=== PATIENT | male | born 1950 | race Two or more races ===

== ENCOUNTER 2020-07-28 08:00 | Day surgery (SDC) | payer OTHER | END 2020-07-28 14:00 | disposition home or self-care (01) | LOC: AMB-ENDOS 08:00 | PROVIDERS: ATTEND Surgery | DX: D12.8 Benign neoplasm of rectum (principal) ==

== ENCOUNTER 2021-04-05 11:39 | Emergency (ER) | payer OTHER ==
[~2021-04-05] VITALS: Ht 165.1 cm; Wt 86.2 kg
[2021-04-05] MEDS ORDERED: LEVOTHYROXINE50 MC1 PO (12:17)
[2021-04-05] MEDS ORDERED: EZALLOR SPRINKL20 MG PO (12:17)
[2021-04-05] MEDS ORDERED: COZAAR100 MG PO (12:17)
[2021-04-05] MEDS ORDERED: AMLODIPINE-OLM1 EAC2 PO (12:17)
[2021-04-05] MEDS ORDERED: CHLORTHALIDONE25 MG PO (12:17)
[2021-04-05] MEDS ORDERED: MECLIZINE HCL25 M1 PO (12:18)
[2021-04-05] MEDS ORDERED: MEDI-MECLIZINE25 MG PO (22:07)
== END 2021-04-05 22:15 | disposition home or self-care (01) ==
LOC: ER 11:39
DX: R42 Dizziness and giddiness (principal); Z72.0 Tobacco use

== ENCOUNTER 2023-08-27 15:19 | Inpatient (IN) | payer OTHER ==
[~2023-08-27] VITALS: Ht 175.3 cm; Wt 108.9 kg
[~2023-08-27 15:19] MED LIST: AMLODIPINE-OLM1 EAC2 PO; CHLORTHALIDONE25 MG PO; COZAAR100 MG PO; EZALLOR SPRINKL20 MG PO; LEVOTHYROXINE50 MC1 PO; MECLIZINE HCL25 M1 PO; MEDI-MECLIZINE25 MG PO
[2023-08-27] MEDS ORDERED: TAMS0.4C PO (16:08)
--- NOTE | 2023-08-27 16:08 | NUR ---
PTE ALERTA Y ORIENTADO X3 QUIEN REFIERE VENIR POR DOLOR ABDOMINAL DESDE MEGAN POR LA TARDE. PTE REFIERE NO ESTAR YENDO AL PERRI DESDE ENTONCES. VITALES SE ENCUENTRAN ESTABLES
[2023-08-27] MEDS ORDERED: ONDANSETRON HCL 2 MG/ML VIAL IV STA (16:42)
[2023-08-27] MEDS ORDERED: MEPERIDINE HCL/PF 50 MG/ML VIAL IM ONE (16:45)
--- NOTE | 2023-08-27 17:29 | NUR ---
SE ORIENTA A PACIENTE SOBRE [place] MEDICO, REFIERE ENTENDER. SE REALIZAN MUESTRAS DE LABORATORIO BAJO MEDIDASA ASEPTICAS. SE ADMINISTRAN MEDICAMENTOS GENEVA ORDEN MEDICA. PACIENTE MANEJADO POR . PENDIENTE RE-EVALUACION MEDICA.
[2023-08-27 17:41] LABS: HEMATOCRIT 42.6 % (39.0-48.0); HEMOGLOBIN 14.8 g/dL (13-16.00); MEAN CELL VOLUME 82.6 fL (80.0-100.00); MEAN CORPUSCULAR HEMOGLOBIN 28.7 pg (27.00-32.0); MEAN CORPUSCULAR HGB CONC 34.7 g/dl (32.0-36.0); PLATELET COUNT 190 K/uL (150-450); RED BLOOD COUNT 5.15 M/uL (4.00-6.00); RED CELL DISTRIBUTION WIDTH 16.3 % (11.5-14.5)
[2023-08-27 17:57] LABS: CALCIUM 8.9 mg/dL (8.5-10.1); CREATININE SERUM 0.94 mg/dL (0.70-1.30); GFR 78.89; POTASSIUM 3.6 mEq/L (3.5-5.1)
[2023-08-27] MEDS ORDERED: 0.9 % SODIUM CHLORIDE 1,000 ML IV SCH (18:00)
[2023-08-27 20:15] LABS: PH,URINE 6.5 (5.0-8.0); URINE APPEARANCE Clear; URINE BILIRRUBIN Negative (NEGATIVE); URINE BLOOD Negative; URINE COLOR Dark Yellow; URINE GLUCOSE Negative (NEGATIVE); URINE LEUKOCYTE Trace; URINE NITRATE Negative
[2023-08-27 20:19] LABS: URINE BACTERIA 84.4 uL (0.0-1933); URINE EPITHELIAL CELLS 5.2 uL (0.0-38.8); URINE RBC 9.4 uL (0.0-20.8); URINE WBC 1.8 uL (0.0-23.2)
[2023-08-27 20:20] LABS: URINE PROTEIN 300 (NEGATIVE)
[2023-08-27] MEDS ORDERED: ACETAMINOPHEN 500 MG GEL..CAP PO ONE (22:00)
[2023-08-27] MEDS ORDERED: PIPERACILLIN/TAZOBACTAM SODIUM 3.375 GM VIAL IV ONE (22:45)
[2023-08-28] MEDS ORDERED: ENALAPRILAT DIHYDRATE 1.25 MG/ML VIAL IV PRN (00:15)
[2023-08-28] MEDS ORDERED: ACETAMINOPHEN 500 MG GEL..CAP PO PRN (00:15)
[2023-08-28] MEDS ORDERED: ONDANSETRON HCL 4 MG in 0.9 % SODIUM CHLORIDE 50 ML IV PRN (00:15)
[2023-08-28 03:48] LABS: INR 1.2; PARTIAL THROMBOPLASTIN TIME 37.6 SECONDS (22.0-34.0); PROTHROMBIN TIME 12.4 SECONDS (9.0-11.5)
[2023-08-28] MEDS ORDERED: PIPERACILLIN/TAZOBACTAM SODIUM 3.375 GM in DEXTROSE 5 % IN WATER 100 ML IV SCH (06:00)
[2023-08-28] MEDS ORDERED: FAMOTIDINE/PF 20 MG in 0.9 % SODIUM CHLORIDE 8 ML IV PUSH SCH (09:00)
[2023-08-28] MEDS ORDERED: REMDESIVIR 100 MG VIAL IV NR (17:00)
[2023-08-29] MEDS ORDERED: KETOROLAC TROMETHAMINE 30 MG VIAL IV PRN (02:00)
[2023-08-29] MEDS ORDERED: METOCLOPRAMIDE HCL 5 MG/ML VIAL IV SCH (05:00)
[2023-08-29] MEDS ORDERED: SUCRALFATE 1 G TABLET PO SCH (09:00)
[2023-08-29] MEDS ORDERED: REMDESIVIR 100 MG VIAL IV SCH (17:00)
[2023-08-30] MEDS ORDERED: IPRATROPIUM BROMIDE 0.5 MG/2.5 ML AMPUL.NEB IH SCH (09:25)
[2023-08-31] MEDS ORDERED: METRONIDAZOLE/SODIUM CHLORIDE 100 ML IV SCH (17:09)
[2023-08-31] MEDS ORDERED: levoFLOXacin IN DEXTROSE 5 % 150 ML IV SCH (17:09)
[2023-09-01] MEDS ORDERED: LOSARTAN POTASSIUM 50 MG TABLET PO SCH (09:00)
[2023-09-02 09:15] LABS: HEMOGLOBIN 12.5 g/dL (13-16.00); MEAN CELL VOLUME 82.1 fL (80.0-100.00); MEAN CORPUSCULAR HEMOGLOBIN 27.7 pg (27.00-32.0); MEAN CORPUSCULAR HGB CONC 33.7 g/dl (32.0-36.0); PLATELET COUNT 176 K/uL (150-450); RED BLOOD COUNT 4.51 M/uL (4.00-6.00); RED CELL DISTRIBUTION WIDTH 16.3 % (11.5-14.5)
== END 2023-09-03 11:11 | disposition home or self-care (01) | DRG 397 ==
LOC: ER 15:20 → SEC-K 08-28 00:14 → SURG 08-28 00:14 → SEC-K 08-28 07:21 → O/R 08-28 22:00 → SURG 08-28 23:34 → SURH 09-02 16:25
PROVIDERS: Emergency Medicine; General Practice; Internal Medicine Infectious Disease; Surgery; ADMIT Internal Medicine; ATTEND Internal Medicine
PROC: BW21YZZ Computerized Tomography (CT Scan) of Abdomen and Pelvis using Other Contrast (ICD-10-PCS; 2023-08-27)
PROC: 0W9G4ZZ Drainage of Peritoneal Cavity, Percutaneous Endoscopic Approach (ICD-10-PCS; 2023-08-28)
PROC: 0DH67UZ Insertion of Feeding Device into Stomach, Via Natural or Artificial Opening (ICD-10-PCS; 2023-08-28)
PROC: XW033E5 Introduction of Remdesivir Anti-infective into Peripheral Vein, Percutaneous Approach, New Technology Group 5 (ICD-10-PCS; 2023-08-28)
PROC: 0DTJ4ZZ Resection of Appendix, Percutaneous Endoscopic Approach (ICD-10-PCS; principal; 2023-08-28 20:00)
PROC: 3E0F7GC Introduction of Other Therapeutic Substance into Respiratory Tract, Via Natural or Artificial Opening (ICD-10-PCS; 2023-08-30)
DX: K35.33 Acute appendicitis with perforation, localized peritonitis, and gangrene, with abscess (principal); U07.1 COVID-19; K56.51 Intestinal adhesions [bands], with partial obstruction; R19.7 Diarrhea, unspecified; I10 Essential (primary) hypertension; E03.9 Hypothyroidism, unspecified; G47.30 Sleep apnea, unspecified; B96.20 Unspecified Escherichia coli [E. coli] as the cause of diseases classified elsewhere; B96.5 Pseudomonas (aeruginosa) (mallei) (pseudomallei) as the cause of diseases classified elsewhere; B96.89 Other specified bacterial agents as the cause of diseases classified elsewhere

== ENCOUNTER 2023-09-30 16:50 | Inpatient (IN) | payer OTHER ==
[~2023-09-30] VITALS: Ht 170.2 cm; Wt 79.4 kg
[~2023-09-30 16:50] MED LIST changes: +TAMS0.4C PO
[2023-09-30] MEDS ORDERED: METRONIDAZOLE/SODIUM CHLORIDE 500 MG/100 ML PIGGYBACK IV STA (17:37)
[2023-09-30] MEDS ORDERED: METRONIDAZOLE/SODIUM CHLORIDE 500 MG/100 ML PIGGYBACK IV SCH (17:37)
[2023-09-30] MEDS ORDERED: PANTOPRAZOLE SODIUM 40 MG/VIAL VIAL IV ONE (17:45)
[2023-09-30] MEDS ORDERED: METHYLPREDNISOLONE SOD SUCC 40 MG VIAL IV ONE (17:45)
[2023-09-30] MEDS ORDERED: DIPHENHYDRAMINE HCL 50 MG/ML VIAL 1ML IV ONE (17:45)
[2023-09-30 18:40] LABS: HEMATOCRIT 30.2 % (39.0-48.0); HEMOGLOBIN 10.4 g/dL (13-16.00); MEAN CELL VOLUME 81.9 fL (80.0-100.00); MEAN CORPUSCULAR HEMOGLOBIN 28.1 pg (27.00-32.0); MEAN CORPUSCULAR HGB CONC 34.3 g/dl (32.0-36.0); PLATELET COUNT 192 K/uL (150-450); RED BLOOD COUNT 3.69 M/uL (4.00-6.00); RED CELL DISTRIBUTION WIDTH 16.4 % (11.5-14.5)
[2023-09-30 18:46] LABS: URINE APPEARANCE Cloudy; URINE BILIRRUBIN Negative (NEGATIVE); URINE BLOOD Negative; URINE COLOR Yellow; URINE GLUCOSE Negative (NEGATIVE); URINE KETONE Trace (NEGATIVE); URINE LEUKOCYTE Negative; URINE NITRATE Negative; URINE UROBILINOGEN 0.2 E.U./dl
[2023-09-30] MEDS ORDERED: CIPROFLOXACIN IN 5 % DEXTROSE 400 MG/200 ML PIGGYBAG IV STA (18:48)
[2023-09-30 18:49] LABS: URINE BACTERIA 26.4 uL (0.0-1933); URINE EPITHELIAL CELLS 9.8 uL (0.0-38.8); URINE RBC 8.8 uL (0.0-20.8); URINE WBC 27.5 uL (0.0-23.2)
[2023-09-30 18:50] LABS: URINE CAST 0.15 uL (0.0-1.40); URINE PROTEIN 100 (NEGATIVE)
[2023-09-30 18:54] LABS: ERYTHROCYTE SEDIMENTATION RATE 82 mm/hr
[2023-09-30 18:56] LABS: INR 1.14; PARTIAL THROMBOPLASTIN TIME 34.7 SECONDS (22.0-34.0); PROTHROMBIN TIME 11.9 SECONDS (9.0-11.5)
[2023-09-30 19:02] LABS: ABG PH 7.469 (7.35-7.45); ABG PO2 94.8 mmHg (80-100); ABG pCO2 28.7 mmHg (35-45); BASE EXCESS -1.9 mmol/l; BICARBONATE 20.4 mmol/l (23-25); SaO2 97.8 %; Tco2 21.2 mmol/l
[2023-09-30 19:03] LABS: allen test SATISFACTORY; o2 21 %; puncture site RADIAL RIGHT
[2023-09-30 19:59] LABS: ALBUMIN 2.3 gm/dL (3.4-5.0); BILIRUBIN TOTAL 0.74 mg/dL (0.3-1.2); CALCIUM 7.7 mg/dL (8.5-10.1); CREATININE SERUM 1.15 mg/dL (0.70-1.30); GFR 62.51; GLOBULINA 3.9 G/DL (2.4-3.5); POTASSIUM 3.23 mEq/L (3.5-5.1); TOTAL PROTEIN 6.2 gm/dL (6.4-8.2)
[2023-09-30] MEDS ORDERED: MORPHINE SULFATE 2 MG/ML CARTRIDGE IV PRN (20:30)
[2023-09-30] MEDS ORDERED: FAMOTIDINE/PF 20 MG in 0.9 % SODIUM CHLORIDE 100 ML IV SCH (20:30)
[2023-09-30] MEDS ORDERED: SODIUM CHLORIDE 0.45 % 1,000 ML IV SCH (20:30)
[2023-09-30] MEDS ORDERED: METRONIDAZOLE/SODIUM CHLORIDE 100 ML IV SCH (20:31)
[2023-09-30] MEDS ORDERED: TAMSULOSIN HCL 0.4 MG CAP PO SCH (20:32)
[2023-10-01] MEDS ORDERED: LEVOTHYROXINE SODIUM 50 MCG TABLET PO SCH (06:00)
[2023-10-01] MEDS ORDERED: CIPROFLOXACIN IN 5 % DEXTROSE 200 ML IV SCH (09:00)
[2023-10-01] MEDS ORDERED: LOSARTAN POTASSIUM 100 MG TABLET PO SCH (09:00)
[2023-10-01] MEDS ORDERED: POTASSIUM CHLORIDE IN WATER 100 ML IV NR (12:15)
[2023-10-01 12:56] LABS: ALBUMIN 2.3 gm/dL (3.4-5.0); BILIRUBIN TOTAL 0.6 mg/dL (0.3-1.2); CALCIUM 7.6 mg/dL (8.5-10.1); CREATININE SERUM 0.92 mg/dL (0.70-1.30); GFR 80.87; GLOBULINA 3.5 G/DL (2.4-3.5); MAGNESIUM 1.5 mg/dL (1.8-2.4); POTASSIUM 3.14 mEq/L (3.5-5.1); TOTAL PROTEIN 5.8 gm/dL (6.4-8.2)
[2023-10-01 19:25] LABS: HEMATOCRIT 26.7 % (39.0-48.0); MEAN CELL VOLUME 81.7 fL (80.0-100.00); MEAN CORPUSCULAR HEMOGLOBIN 27.5 pg (27.00-32.0); MEAN CORPUSCULAR HGB CONC 33.6 g/dl (32.0-36.0); PLATELET COUNT 192 K/uL (150-450); RED BLOOD COUNT 3.27 M/uL (4.00-6.00); RED CELL DISTRIBUTION WIDTH 16.3 % (11.5-14.5)
[2023-10-02] MEDS ORDERED: SILVER SULFADIAZINE 50 GM,ZINC OXIDE 30 GM,NYSTATIN 30 GM TOP SCH (09:00)
[2023-10-02] MEDS ORDERED: MAGNESIUM SULFATE IN WATER 50 ML IV NR (10:30)
[2023-10-02] MEDS ORDERED: DIPHENHYDRAMINE HCL 50 MG/ML VIAL 1ML IV PRN (12:00)
[2023-10-02] MEDS ORDERED: POTASSIUM CHLORIDE IN WATER 40 MEQ/100 ML PIGGYBAG IV SCH (12:00)
[2023-10-02 16:44] LABS: ABG PH 7.477 (7.35-7.45); ABG PO2 213.9 mmHg (80-100); ABG pCO2 31.3 mmHg (35-45); BASE EXCESS 0 mmol/l; BICARBONATE 22.6 mmol/l (23-25); SaO2 99.8 %
[2023-10-02 16:45] LABS: Tco2 23.6 mmol/l; allen test SATISFACTORY; o2 40 %; puncture site RADIAL RIGHT
[2023-10-02] MEDS ORDERED: PERMETHRIN 60 GM TUBE TOP NR (17:00)
[2023-10-03 10:23] LABS: HEMATOCRIT 27.5 % (39.0-48.0); MEAN CELL VOLUME 83.5 fL (80.0-100.00); MEAN CORPUSCULAR HGB CONC 33.5 g/dl (32.0-36.0); PLATELET COUNT 181 K/uL (150-450); RED CELL DISTRIBUTION WIDTH 16.9 % (11.5-14.5)
[2023-10-03 10:25] LABS: HEMOGLOBIN 9.2 g/dL (13-16.00); MEAN CORPUSCULAR HEMOGLOBIN 27.8 pg (27.00-32.0)
[2023-10-03] MEDS ORDERED: MAGNESIUM SULFATE IN WATER 50 ML IV NR (15:30)
[2023-10-03] MEDS ORDERED: POTASSIUM CHLORIDE IN WATER 40 MEQ/100 ML PIGGYBAG IV SCH (17:00)
[2023-10-03] MEDS ORDERED: AMINO ACIDS 4.25 %/DEXTROSE 5% 1,000 ML PERIFERAL SCH (17:00)
[2023-10-04 08:50] LABS: CALCIUM 7.4 mg/dL (8.5-10.1); CREATININE SERUM 0.7 mg/dL (0.70-1.30); GFR 110.85
[2023-10-04 09:29] LABS: POTASSIUM 2.82 mEq/L (3.5-5.1)
[2023-10-04 10:14] LABS: CHOL HDL RATIO 2.3 (0-5.0)
[2023-10-04] MEDS ORDERED: MAGNESIUM SULFATE IN WATER 50 ML IV NR (13:31)
[2023-10-04] MEDS ORDERED: POTASSIUM CHLORIDE IN WATER 40 MEQ/100 ML PIGGYBAG IV SCH (14:00)
[2023-10-04] MEDS ORDERED: MAGNESIUM SULFATE IN WATER 50 ML IV SCH (17:00)
[2023-10-05 08:34] LABS: CALCIUM 7.4 mg/dL (8.5-10.1); CREATININE SERUM 0.63 mg/dL (0.70-1.30); GFR 125.19; MAGNESIUM 2.3 mg/dL (1.8-2.4); POTASSIUM 3.58 mEq/L (3.5-5.1)
[2023-10-06 08:00] LABS: HEMOGLOBIN 9.2 g/dL (13-16.00); MEAN CELL VOLUME 84.5 fL (80.0-100.00); MEAN CORPUSCULAR HEMOGLOBIN 28.9 pg (27.00-32.0); MEAN CORPUSCULAR HGB CONC 34.3 g/dl (32.0-36.0); RED BLOOD COUNT 3.19 M/uL (4.00-6.00); RED CELL DISTRIBUTION WIDTH 16.8 % (11.5-14.5)
[2023-10-06 08:09] LABS: BILIRUBIN TOTAL 0.42 mg/dL (0.3-1.2); CALCIUM 7.5 mg/dL (8.5-10.1); CREATININE SERUM 0.64 mg/dL (0.70-1.30); GFR 122.93; GLOBULINA 2.8 G/DL (2.4-3.5); POTASSIUM 3.54 mEq/L (3.5-5.1); TOTAL PROTEIN 4.8 gm/dL (6.4-8.2)
[2023-10-06 09:47] LABS: PLATELET COUNT 208 K/uL (150-450)
== END 2023-10-06 13:12 | disposition home or self-care (01) | DRG 390 ==
LOC: ER 16:50 → MEDJ 21:05 → SEC-K 21:05 → MEDJ 21:46
PROVIDERS: General Practice; Student in an Organized Health Care Education/Training Program; ADMIT Internal Medicine; ATTEND Internal Medicine
PROC: 0D9670Z Drainage of Stomach with Drainage Device, Via Natural or Artificial Opening (ICD-10-PCS; principal; 2023-10-01)
PROC: 0DP0XUZ Removal of Feeding Device from Upper Intestinal Tract, External Approach (ICD-10-PCS; 2023-10-03)
PROC: 02HV33Z Insertion of Infusion Device into Superior Vena Cava, Percutaneous Approach (ICD-10-PCS; 2023-10-04)
PROC: 3E0436Z Introduction of Nutritional Substance into Central Vein, Percutaneous Approach (ICD-10-PCS; 2023-10-04)
DX: K56.7 Ileus, unspecified (principal); E83.42 Hypomagnesemia; E87.6 Hypokalemia; L29.8 Other pruritus; L53.8 Other specified erythematous conditions; T78.40XA Allergy, unspecified, initial encounter; E78.5 Hyperlipidemia, unspecified; I10 Essential (primary) hypertension; E03.9 Hypothyroidism, unspecified; X58.XXXA Exposure to other specified factors, initial encounter

== ENCOUNTER 2024-12-26 11:33 | Emergency (ER) | payer OTHER ==
[~2024-12-26] VITALS: Ht 170.2 cm; Wt 99.3 kg
[2024-12-26] MEDS ORDERED: FINASTERIDE5 MG PO (12:14)
[2024-12-26] MEDS ORDERED: MORPHINE SULFATE 2 MG/ML SYRINGE IV ONE (13:45)
[2024-12-26 15:44] LABS: BASO % 0.5 % (0.1-1.2); EOS # 0.12 (0.04-0.54); EOS % 2.8 % (0.7-7.0); LYMPH # 0.87 (1.18-3.74); LYMPH % 20.0 % (19.3-53.1); MEAN PLATELET VOLUME 10.10 fl (9.4-12.4); MONO # 0.43 (0.24-0.82); MONO % 9.9 % (4.7-12.5); NEUT # 2.90 (1.56-6.13); NEUT % 66.6 % (34.0-71.1); RED CELL DISTRIBUTION WIDTH 15.6 % (11.6-14.4)
[2024-12-26 15:58] LABS: ALT/SGPT 25.0 U/L (12-78); AST/SGOT 17.0 U/L (15-37); BILIRUBIN TOTAL 0.57 mg/dL (0.3-1.2); BUN CREA RATIO 17.0 (7.0-25.0); CREATININE SERUM 1.0 mg/dL (0.70-1.30); GFR 73.24; GLOBULINA 3.9 G/DL (2.4-3.5); GLUCOSE FASTING 116.0 mg/dL (65-100); OSMOLALITY SERUM 276.0 MOSM/KG (275-295)
[2024-12-26 17:03] LABS: URINE APPEARANCE Clear; URINE BILIRRUBIN Small (NEGATIVE); URINE BLOOD Negative; URINE COLOR Dark Yellow; URINE GLUCOSE Negative (NEGATIVE); URINE KETONE Trace (NEGATIVE); URINE LEUKOCYTE Trace; URINE NITRATE Negative; URINE UROBILINOGEN 0.2 E.U./dl
[2024-12-26 17:07] LABS: URINE BACTERIA 89.9 uL (0.0-1933); URINE CAST 2.63 uL (0.0-1.40); URINE EPITHELIAL CELLS 8.6 uL (0.0-38.8); URINE WBC 27.8 uL (0.0-23.2)
[2024-12-26 17:31] LABS: URINE PROTEIN 100 (NEGATIVE); URINE RBC 1.6 uL (0.0-20.8)
[2024-12-26] MEDS ORDERED: TRAMADOL HCL 50 MG TABLET PO STA (20:17)
[2024-12-26] MEDS ORDERED: CEFTRIAXONE SODIUM 1,000 MG VIAL IV STA (22:31)
[2024-12-26] MEDS ORDERED: CEFTRIAXONE SODIUM 1,000 MG VIAL IM STA (22:32)
[2024-12-26] MEDS ORDERED: CEFTRIAXONE SODIUM 1,000 MG VIAL ONE (22:40)
== END 2024-12-26 23:05 | disposition home or self-care (01) ==
LOC: ER 11:33
PROVIDERS: General Practice
DX: I50.9 Heart failure, unspecified (principal); Z85.528 Personal history of other malignant neoplasm of kidney; N40.0 Benign prostatic hyperplasia without lower urinary tract symptoms; E03.8 Other specified hypothyroidism; I10 Essential (primary) hypertension
CPT/HCPCS: 36415; 71046; 74177; 76770; 96365; 96372; 99284; J0696; J2270; Q9965